=== PATIENT | male | born 1995 | race Two or more races ===

== ENCOUNTER 2021-07-20 15:50 | Inpatient (IN) | payer OTHER ==
[2021-07-20] MEDS ORDERED: BISMUTH SUBSALICYLATE 524 MG/30 ML PO PRN (18:39)
[2021-07-20] MEDS ORDERED: ONDANSETRON *ODT* 4 MG TABLET SL PRN (18:39)
[2021-07-20] MEDS ORDERED: MENTHOL/PHENOL 1 EACH UD MM PRN (18:39)
[2021-07-20] MEDS ORDERED: METHOCARBAMOL 500 MG TABLET PO PRN (18:39)
[2021-07-20] MEDS ORDERED: ACETAMINOPHEN 325 MG TABLET (FP) PO PRN ×2 (18:39)
[2021-07-20] MEDS ORDERED: NICOTINE POLACRILEX 2 MG GUM BUC PRN (18:39)
[2021-07-20] MEDS ORDERED: MAG HYDROX/AL HYDROX/SIMETH 30 ML UNIT-DOSE CUP PO PRN (18:39)
[2021-07-20] MEDS ORDERED: MAGNESIUM CITRATE 300 ML BOTTLE PO PRN (18:39)
[2021-07-20] MEDS ORDERED: MAGNESIUM HYDROX 2400MG/30ML ORAL SUSPENSION 30 ML CUP PO PRN (18:39)
[2021-07-20] MEDS ORDERED: IBUPROFEN 400 MG TABLET (FP) PO PRN (18:39)
[2021-07-20] MEDS ORDERED: DICYCLOMINE HCL 10 MG CAPSULE PO PRN (18:39)
[2021-07-20 19:22] VITALS: BMI 21.3
[2021-07-20] MEDS ORDERED: THIAMINE HCL 100 MG TABLET (FP) PO SCH (22:00)
[2021-07-20] MEDS ORDERED: MELATONIN 5 MG TABLETS PO SCH (22:00)
[2021-07-20] MEDS: diazePAM 5 MG TABLET PO PRN (22:50)
[2021-07-20] MEDS: hydrOXYzine PAMOATE 25 MG CAPSULE (FP) PO SCH (22:50)
[2021-07-21] MEDS: diazePAM 5 MG TABLET PO PRN (07:06)
[2021-07-21] MEDS: hydrOXYzine PAMOATE 25 MG CAPSULE (FP) PO SCH (07:08)
[2021-07-21 09:01] VITALS: BP 94/54; PULSE 88; TEMP 98.4
[2021-07-21] MEDS ORDERED: NICOTINE 10 MG CARTRIDGE (INHALER) IH PRN (09:33)
[2021-07-21] MEDS ORDERED: PRENATAL VITAMINS W/ FOLIC ACID TABLET (FP) PO SCH (10:00)
[2021-07-21] MEDS ORDERED: diazePAM 5 MG TABLET PO SCH (11:00)
[2021-07-21 12:17] LABS: HEMATOCRIT 37.1 % (35.4-49); HEMOGLOBIN 12.8 GM/dL (11.7-16.9); MCH 30.8 pg (25.7-33.7); MCHC 34.4 g/dl (32.0-35.9); MEAN CELL VOLUME 89.6 fl (80-96); MEAN PLT VOLUME 9.6 fl (7.5-11.1); PLATELET COUNT 192 10^3/uL (134-434); RBC 4.14 M/mm3 (4.00-5.60); WHITE BLOOD COUNT 3.6 K/mm3 (4.0-10.0)
[2021-07-21 12:24] LABS: CALCIUM 8.2 mg/dL (8.5-10.1)
[2021-07-21 12:26] LABS: ALBUMIN 3.1 g/dl (3.4-5.0); BLOOD UREA NITROGEN 9.8 mg/dL (7-18)
[2021-07-21 12:29] LABS: BILIRUBIN,TOTAL 0.2 mg/dL (0.2-1); CREATININE 0.7 mg/dL (0.55-1.3); TOT PROT 5.8 g/dl (6.4-8.2)
[2021-07-21] MEDS ORDERED: diazePAM 5 MG TABLET PO PRN (13:09)
[2021-07-23] MEDS ORDERED: diazePAM 5 MG TABLET PO SCH (06:00)
[2021-07-24] MEDS ORDERED: diazePAM 5 MG TABLET PO SCH (06:00)
[2021-07-25] MEDS ORDERED: diazePAM 5 MG TABLET PO ONE (06:00)
== END 2021-07-21 10:05 | disposition left against medical advice (07) | DRG 770 ==
LOC: YASAS 15:50 → UNDOADMIN 20:15 → Y3N 20:15
PROVIDERS: ADMIT Allergy & Immunology; ATTEND Allergy & Immunology
PROC: HZ2ZZZZ Detoxification Services for Substance Abuse Treatment (ICD-10-PCS; principal; 2021-07-20)
DX: F13.230 Sedative, hypnotic or anxiolytic dependence with withdrawal, uncomplicated (principal); F17.210 Nicotine dependence, cigarettes, uncomplicated; F41.9 Anxiety disorder, unspecified
CPT/HCPCS: 36415; 80053; 85027; 86780; C9803; U0003; U0005